=== PATIENT | male | born 1950 | race Caucasian/White ===

== ENCOUNTER 2018-06-04 12:42 | Emergency (ER) | payer MEDICARE, OTHER ==
[2018-06-04] MEDS ORDERED: predniSONE 20 MG TABLET PO STA (13:52)
[2018-06-04] MEDS ORDERED: KETOROLAC 60 MG/2 ML VIAL IM STA (13:52)
[2018-06-04] MEDS ORDERED: COLCHICINE 0.6 MG TABLET PO STA (13:52)
--- NOTE | 2018-06-04 13:53 | ED Physician Documentation ---
History of Present Illness - Stated complaint Stated Complaint: LEFT FOOT PX - Chief complaint Chief Complaint: Ext Problem - History obtained from History obtained from: Patient, Family - History of Present Illness Timing: Yesterday Pain level max: 8 Pain level now: 8 Improved by: rest Worsened by: walking - Additonal information Additional information: Patient is a 67-year-old male who has a long-standing history of recurrent gout. States this happens 1-2 times per year. Always in the left ankle. Review of Systems Constitutional: denies: Fever, Chills GI: denies: Abdominal Pain, Nausea, Vomiting Skin: denies: Rash Musculoskeletal: denies: Neck pain, Back pain Neurologic: denies: Focal weakness, Numbness, Headache PD PAST MEDICAL HISTORY - Past Medical History Past Medical History: Yes Cardiovascular: Hypertension, High cholesterol Respiratory: Sleep apnea Endocrine/Autoimmune: Type 2 diabetes GI: Colon polyps : Benign prostate hypertrophy HEENT: None Psych: None Musculoskeletal: Rheumatoid arthritis Derm: Herpes zoster - Past Surgical History Past Surgical History: Yes General: Appendectomy, Colonoscopy - Present Medications Home Medications: Ambulatory Orders Medication Instructions Recorded Confirmed Amitriptyline [Elavil] 25 mg PO HS 02/11/15 09/16/16 Ascorbic Acid [Vitamin C] 1,000 mg PO DAILY 02/11/15 09/16/16 Atorvastatin [Lipitor] 40 mg PO DAILY PM 02/11/15 09/16/16 Glipizide [Glucotrol] 10 mg PO BID 02/11/15 09/16/16 Lisinopril [Zestril] 5 mg PO DAILY 02/11/15 09/16/16 Metoprolol Tartrate 100 mg PO DAILY 02/11/15 09/16/16 Tamsulosin [Flomax] 0.4 mg PO DAILY 02/11/15 09/16/16 Aspirin [Aspir-Low] 81 mg PO DAILY 09/16/16 09/16/16 Cholecalciferol (Vitamin D3) 200 unit PO DAILY 09/16/16 09/16/16 [Vitamin D3] Cyanocobalamin (Vitamin B-12) 5,000 mcg PO DAILY 09/16/16 09/16/16 [Vitamin B12] Doxylamine Succinate [Sleep Aid] 1 tab PO QPM PRN 09/16/16 09/16/16 Finasteride 5 mg PO DAILY 09/16/16 09/16/16 Multivitamin [Multiple Vitamins] 1 each PO DAILY 09/16/16 09/16/16 [place]-3 Fatty Acids [Fish Oil] 2,400 mg PO DAILY 09/16/16 09/16/16 Pregabalin [Lyrica] 200 mg PO TID 09/16/16 09/16/16 Meloxicam [Mobic] 15 mg PO DAILY PRN #20 tablet 06/04/18 predniSONE [Prednisone] 40 mg PO DAILY #10 tablet 06/04/18 - Allergies Allergies/Adverse Reactions: Allergies Allergy/AdvReac Type Severity Reaction Status Date / Time oxycodone AdvReac Nausea Verified 02/11/15 07:21 - Social History Does the pt smoke?: No Smoking Status: Never smoker Does the pt drink ETOH?: Yes Does the pt have substance abuse?: No - Immunizations Immunizations are current?: Yes PD ED PE NORMAL - Vitals Vital signs reviewed: Yes - General General: Alert and oriented X 3, No acute distress - Derm Derm: Warm and dry - Extremities Extremities: Other (mild swelling L lateral malleolus. NVI. mild redness. mild pain with ROM of the ankle. ) - Neuro Neuro: Alert and oriented X 3 - Psych Psych: Normal mood, Normal affect Results - Vitals Vitals: Vital Signs - 24 hr 06/04/18 06/04/18 12:49 14:29 Temperature 36.3 C L 36.3 C L Heart Rate 65 58 L Respiratory 16 18 Rate Blood Pressure 164/66 H 135/93 H O2 Saturation 97 97 Oxygen O2 Source Room air PD MEDICAL DECISION MAKING - ED course Complexity details: considered differential, d/w patient, d/w family ED course: Patient is a 67-year-old male who presents to the emergency department with his usual gout flare. No evidence of septic joint. Given colchicine, prednisone and nonsteroidal anti-inflammatories here. Will continue prednisone and NSAIDs at home. Patient counseled regarding signs and symptoms for which I believe and urgent re-evaluation would be necessary. Patient with good understanding of and agreement to plan and is comfortable going home at this time This document was made in part using voice recognition software. While efforts are made to proofread this document, sound alike and grammatical errors may occur. - Sepsis Event Vital Signs: Vital Signs - 24 hr 06/04/18 06/04/18 12:49 14:29 Temperature 36.3 C L 36.3 C L Heart Rate 65 58 L Respiratory 16 18 Rate Blood Pressure 164/66 H 135/93 H O2 Saturation 97 97 Oxygen O2 Source Room air Departure - Departure Disposition: 01 Home, Self Care Clinical Impression: Gout Qualifiers: Gout site: ankle Gout etiology: unspecified cause Chronicity: acute Laterality : left Qualified Code(s): M10.9 - Gout, unspecified Condition: Good Instructions: ED Arthritis Gout, ED Diet Gout Follow-Up: Provider,Other [Primary Care Provider] - Within 1 week Prescriptions: Meloxicam [Mobic] 15 mg PO DAILY PRN #20 tablet PRN Reason: pain predniSONE [Prednisone] 40 mg PO DAILY #10 tablet Comments: Return if you worsen. This should improve over the next few days. Discharge Date/Time: 06/04/18 14:29
[2018-06-04 14:31] VITALS: BP 135/93
== END 2018-06-04 14:29 | disposition home or self-care (01) ==
LOC: ED 12:42
DX: M10.9 Gout, unspecified (principal); M06.9 Rheumatoid arthritis, unspecified; I10 Essential (primary) hypertension; E78.00 Pure hypercholesterolemia, unspecified; E11.9 Type 2 diabetes mellitus without complications; N40.0 Benign prostatic hyperplasia without lower urinary tract symptoms; Z86.010 Personal history of colon polyps; Z79.82 Long term (current) use of aspirin; Z79.84 Long term (current) use of oral hypoglycemic drugs
CPT/HCPCS: 96372; 99283; A9270; J7512

== ENCOUNTER 2020-03-28 21:06 | Outpatient (CLI) | payer MEDICARE, OTHER | END 2020-03-28 23:59 | disposition critical access hospital (66) | LOC: EMS 21:06 | PROVIDERS: ATTEND Surgery | DX: R41.82 Altered mental status, unspecified (principal); R73.09 Other abnormal glucose; R11.2 Nausea with vomiting, unspecified | CPT/HCPCS: A0425; A0427 ==

== ENCOUNTER 2020-03-28 21:20 | Emergency (ER) | payer MEDICARE, OTHER ==
--- NOTE | 2020-03-28 21:36 | ED Physician Documentation ---
History of Present Illness - Stated complaint Stated Complaint: AMS - Chief complaint Chief Complaint: Neuro - History obtained from History obtained from: Patient (the patient is a 69 y/o M brought in my ems after the noticed her drinking a beer and then he started acting confused. the remainder of the history is unknown.) Review of Systems Unable to obtain: Intoxicated PD PAST MEDICAL HISTORY - Past Medical History Past Medical History: Yes Cardiovascular: Hypertension, High cholesterol Respiratory: Sleep apnea Endocrine/Autoimmune: Type 2 diabetes GI: Colon polyps : Benign prostate hypertrophy HEENT: None Psych: None Musculoskeletal: Rheumatoid arthritis Derm: Herpes zoster - Past Surgical History Past Surgical History: Yes General: Appendectomy, Colonoscopy - Present Medications Home Medications: Ambulatory Orders Medication Instructions Recorded Confirmed Amitriptyline [Elavil] 25 mg PO HS 02/11/15 03/29/20 Ascorbic Acid [Vitamin C] 1,000 mg PO DAILY 02/11/15 03/29/20 Atorvastatin [Lipitor] 40 mg PO DAILY PM 02/11/15 03/29/20 Glipizide [Glucotrol] 10 mg PO BID 02/11/15 03/29/20 Metoprolol Tartrate 100 mg PO DAILY 02/11/15 03/29/20 Tamsulosin [Flomax] 0.4 mg PO DAILY 02/11/15 03/29/20 lisinopriL [Zestril] 5 mg PO DAILY 02/11/15 03/29/20 Aspirin [Aspir-Low] 81 mg PO DAILY 09/16/16 03/29/20 Cholecalciferol (Vitamin D3) 200 unit PO DAILY 09/16/16 03/29/20 [Vitamin D3] Cyanocobalamin (Vitamin B-12) 5,000 mcg PO DAILY 09/16/16 03/29/20 [Vitamin B12] Doxylamine Succinate [Sleep Aid] 1 tab PO QPM PRN 09/16/16 03/29/20 Finasteride 5 mg PO DAILY 09/16/16 03/29/20 Multivitamin [Multiple Vitamins] 1 each PO DAILY 09/16/16 03/29/20 [place]-3 Fatty Acids [Fish Oil] 2,400 mg PO DAILY 09/16/16 03/29/20 Pregabalin [Lyrica] 200 mg PO TID 09/16/16 03/29/20 Meloxicam [Mobic] 15 mg PO DAILY PRN #20 tablet 06/04/18 03/29/20 predniSONE [Prednisone] 40 mg PO DAILY #10 tablet 06/04/18 03/29/20 - Allergies Allergies/Adverse Reactions: Allergies Allergy/AdvReac Type Severity Reaction Status Date / Time oxycodone AdvReac Nausea Verified 03/28/20 21:28 - Social History Does the pt smoke?: No Smoking Status: Never smoker Does the pt drink ETOH?: Yes Does the pt have substance abuse?: No - Immunizations Immunizations are current?: Yes - POLST Patient has POLST: No PD ED PE NORMAL - Vitals Vital signs reviewed: Yes - General General: Other (patient smells of alcohol and is slurring his speech.) - HEENT HEENT: Atraumatic, PERRL - Neck Neck: Supple, no meningeal sign - Cardiac Cardiac: RRR, No murmur, Strong equal pulses - Respiratory Respiratory: No respiratory distress, Clear bilaterally - Abdomen Abdomen: Normal bowel sounds, Soft, Non tender, Non distended - Derm Derm: Normal color, Warm and dry, No rash - Extremities Extremities: No deformity, No tenderness to palpate, Normal ROM s pain, No edema, No calf tenderness / cord - Neuro Neuro: Other (smells of alcohol. no facial droop. no unilateral weakness.) - Psych Psych: Normal mood, Normal affect Results - Vitals Vitals: Vital Signs - 24 hr 03/28/20 03/28/20 03/28/20 21:18 21:43 21:58 Temperature Heart Rate 72 67 58 L Respiratory 22 22 20 Rate Blood Pressure 145/73 H 131/68 H 131/68 H O2 Saturation 86 L 99 99 03/28/20 03/28/20 03/28/20 22:05 22:11 22:37 Temperature Heart Rate 78 67 Respiratory 17 14 Rate Blood Pressure 126/64 134/62 H O2 Saturation 97 95 95 03/28/20 03/28/20 03/28/20 22:48 22:58 23:14 Temperature Heart Rate 55 L 57 L 59 L Respiratory 12 12 12 Rate Blood Pressure 134/62 H 134/62 H 108/54 L O2 Saturation 88 L 100 100 03/28/20 03/29/20 03/29/20 23:30 00:00 00:30 Temperature 36.0 C L Heart Rate 70 77 59 L Respiratory 12 20 13 Rate Blood Pressure 105/58 L 119/64 119/64 O2 Saturation 100 100 100 03/29/20 03/29/20 03/29/20 01:07 01:31 02:12 Temperature Heart Rate 65 63 70 Respiratory 12 16 14 Rate Blood Pressure 137/71 H 137/71 H 142/69 H O2 Saturation 98 97 94 03/29/20 03/29/20 03/29/20 03:00 03:34 04:00 Temperature Heart Rate 69 77 56 L Respiratory 22 15 13 Rate Blood Pressure 112/63 120/69 130/67 O2 Saturation 99 98 94 03/29/20 03/29/20 03/29/20 04:37 05:10 05:56 Temperature 36.8 C Heart Rate 54 L 54 L 53 L Respiratory 12 11 L 16 Rate Blood Pressure 106/58 L 99/56 L 140/70 H O2 Saturation 99 99 97 Oxygen O2 Source Room air Oxygen Flow Rate 2 - Labs Labs: Laboratory Tests 03/28/20 03/28/20 03/28/20 21:46 21:46 21:46 WBC 8.8 RBC 3.26 L Hgb 10.9 L Hct 33.4 L MCV 102.5 H MCH 33.4 H MCHC 32.6 RDW 14.3 Plt Count 220 MPV 8.6 Neut # (Auto) 6.2 Lymph # (Auto) 1.7 [place] # (Auto) 0.7 Eos # (Auto) 0.1 Baso # (Auto) 0.0 Absolute Nucleated RBC 0.00 Nucleated RBC % 0.0 PT 11.5 INR 1.0 APTT 27.0 Sodium Potassium Chloride Carbon Dioxide Anion Gap BUN Creatinine Estimated GFR (MDRD) Glucose Lactic Acid Calcium Total Bilirubin AST ALT Alkaline Phosphatase Total Creatine Kinase 337 H Troponin I High Sens B-Natriuretic Peptide Total Protein Albumin Globulin Albumin/Globulin Ratio Lipase TSH Urine Color Urine Clarity Urine pH Ur Specific [place] Urine Protein Urine Glucose (UA) Urine Ketones Urine Occult Blood Urine Nitrite Urine Bilirubin Urine Urobilinogen Ur Leukocyte Esterase Ur Microscopic Review Urine Culture Comments Salicylates < 6.0 Urine Opiates Screen Ur Oxycodone Screen Urine Methadone Screen Ur Propoxyphene Screen Acetaminophen < 10 L Ur Barbiturates Screen Ur Tricyclics Screen Ur Phencyclidine Scrn Ur Amphetamine Screen U Methamphetamines Scrn U Benzodiazepines Scrn Urine Cocaine Screen U Cannabinoids Screen Ethyl Alcohol 282.2 03/28/20 03/28/20 03/28/20 21:46 21:46 21:46 WBC RBC Hgb Hct MCV MCH MCHC RDW Plt Count MPV Neut # (Auto) Lymph # (Auto) [place] # (Auto) Eos # (Auto) Baso # (Auto) Absolute Nucleated RBC Nucleated RBC % PT INR APTT Sodium Potassium Chloride Carbon Dioxide Anion Gap BUN Creatinine Estimated GFR (MDRD) Glucose Lactic Acid 3.1 H* Calcium Total Bilirubin AST ALT Alkaline Phosphatase Total Creatine Kinase Troponin I High Sens B-Natriuretic Peptide 34 Total Protein Albumin Globulin Albumin/Globulin Ratio Lipase TSH 5.15 Urine Color Urine Clarity Urine pH Ur Specific [place] Urine Protein Urine Glucose (UA) Urine Ketones Urine Occult Blood Urine Nitrite Urine Bilirubin Urine Urobilinogen Ur Leukocyte Esterase Ur Microscopic Review Urine Culture Comments Salicylates Urine Opiates Screen Ur Oxycodone Screen Urine Methadone Screen Ur Propoxyphene Screen Acetaminophen Ur Barbiturates Screen Ur Tricyclics Screen Ur Phencyclidine Scrn Ur Amphetamine Screen U Methamphetamines Scrn U Benzodiazepines Scrn Urine Cocaine Screen U Cannabinoids Screen Ethyl Alcohol 03/28/20 03/28/20 03/28/20 21:46 21:46 21:54 WBC RBC Hgb Hct MCV MCH MCHC RDW Plt Count MPV Neut # (Auto) Lymph # (Auto) [place] # (Auto) Eos # (Auto) Baso # (Auto) Absolute Nucleated RBC Nucleated RBC % PT INR APTT Sodium 133 L Potassium 3.8 Chloride 95 L Carbon Dioxide 26 Anion Gap 12.0 BUN 22 H Creatinine 1.0 Estimated GFR (MDRD) 74 L Glucose 133 H Lactic Acid Calcium 8.9 Total Bilirubin 0.7 AST 24 ALT 11 Alkaline Phosphatase 36 L Total Creatine Kinase Troponin I High Sens 3.5 B-Natriuretic Peptide Total Protein 6.5 L Albumin 4.0 Globulin 2.5 Albumin/Globulin Ratio 1.6 Lipase 56 H TSH Urine Color YELLOW Urine Clarity CLEAR Urine pH 7.0 Ur Specific [place] <=1.005 Urine Protein NEGATIVE Urine Glucose (UA) NEGATIVE Urine Ketones NEGATIVE Urine Occult Blood NEGATIVE Urine Nitrite NEGATIVE Urine Bilirubin NEGATIVE Urine Urobilinogen 0.2 (NORMAL) Ur Leukocyte Esterase NEGATIVE Ur Microscopic Review NOT INDICATED Urine Culture Comments NOT INDICATED Salicylates Urine Opiates Screen NEGATIVE Ur Oxycodone Screen NEGATIVE Urine Methadone Screen NEGATIVE Ur Propoxyphene Screen NEGATIVE Acetaminophen Ur Barbiturates Screen NEGATIVE Ur Tricyclics Screen NEGATIVE Ur Phencyclidine Scrn NEGATIVE Ur Amphetamine Screen NEGATIVE U Methamphetamines Scrn NEGATIVE U Benzodiazepines Scrn NEGATIVE Urine Cocaine Screen NEGATIVE U Cannabinoids Screen NEGATIVE Ethyl Alcohol PD MEDICAL DECISION MAKING - ED course Complexity details: reviewed results, re-evaluated patient (06:00 Patient is awake, alert, oriented he has a steady gait and steady speech tolerated p.o. challenge his is here to pick him up. Work-up is consistent with alcohol intoxication patient educated in counseling on the dangers and risks of alcohol use and alcohol abuse.), considered differential (alcohol intoxication, no anion gap, family reports patient hides his drinking, no indications of any toxic alcohol ingestions. ), d/w patient, d/w family Departure - Departure Disposition: 01 Home, Self Care Clinical Impression: Alcohol intoxication Qualifiers: Complication of substance-induced condition: with unspecified complication Qualified Code(s): F10.929 - Alcohol use, unspecified with intoxication, unspecified Condition: Stable Instructions: ED Alcohol Intoxication Follow-Up: PATTI VO MD [Primary Care Provider] - 03/29/20 Comments: Follow-up with your primary care provider today for recheck. decrease alcohol use.
[2020-03-28] MEDS ORDERED: SODIUM CHLORIDE 0.9% 1,000 ML IV STA ×2 (21:39→22:13)
[2020-03-28] MEDS ORDERED: LORazepam 2 MG/ML VIAL IVP STA ×2 (21:39→22:25)
[2020-03-28 21:53] LABS: BASOPHILS % (AUTO) 0.3 %; EOSINOPHILS # (AUTO) 0.1 10^3/uL (0.0-0.7); EOSINOPHILS % (AUTO) 1.5 %; HGB - HEMOGLOBIN 10.9 g/dL (14.0-18.0); LYMPHOCYTES # (AUTO) 1.7 10^3/uL (1.5-3.5); LYMPHOCYTES % (AUTO) 19.4 %; MEAN CORPUSCULAR HEMOGLOBIN 33.4 pg (27.0-31.0); MEAN CORPUSCULAR HGB CONC 32.6 g/dL (32.0-36.0); MEAN CORPUSCULAR VOLUME 102.5 fL (80.0-94.0); MEAN PLATELET VOLUME 8.6 fL (7.4-11.4); MONOCYTES # (AUTO) 0.7 10^3/uL (0.0-1.0); MONOCYTES % (AUTO) 8.1 %; NEUTROPHILS # (AUTO) 6.2 10^3/uL (1.5-6.6); NEUTROPHILS % (AUTO) 70.5 %; PLT - PLATELET COUNT 220 10^3/uL (130-450); RED BLOOD COUNT 3.26 10^6/uL (4.70-6.10); RED CELL DISTRIBUTION WIDTH 14.3 % (12.0-15.0); WHITE BLOOD COUNT 8.8 x10^3/uL (4.8-10.8)
[2020-03-28 21:58] LABS: MUDS CUTOFF CONCENTRATIONS CUTOFF CONC BELOW:
[2020-03-28 21:59] LABS: PT - PROTHROMBIN TIME 11.5 secs (9.9-12.6)
[2020-03-28 21:59] LABS: BILIRUBIN,URINE NEGATIVE (NEGATIVE); GLUCOSE, URINE (UA) NEGATIVE (NEGATIVE); KETONES,URINE (UA) NEGATIVE (NEGATIVE); LEUKOCYTE ESTERASE, URINE NEGATIVE (NEGATIVE); NITRITE,URINE NEGATIVE (NEGATIVE); OCCULT BLOOD,URINE NEGATIVE (NEGATIVE); PROTEIN,URINE NEGATIVE (NEGATIVE); UROBILINOGEN,URINE 0.2 (NORMAL) E.U./dL (NORMAL)
[2020-03-28 22:00] LABS: CLARITY,URINE CLEAR (CLEAR)
[2020-03-28] MEDS ORDERED: ONDANSETRON 4 MG/2 ML VIAL IVP STA (22:07)
[2020-03-28 22:08] LABS: ACETAMINOPHEN < 10 ug/mL (10-30); CK- CREATINE KINASE 337 IU/L (22-269); SALICYLATE < 6.0 mg/dL
[2020-03-28 22:10] LABS: AMPHETAMINE SCREEN,URINE NEGATIVE (NEGATIVE); BENZODIAZEPINES SCREEN, URINE NEGATIVE (NEGATIVE); COCAINE SCREEN URINE NEGATIVE (NEGATIVE); METHADONE SCREEN, URINE NEGATIVE (NEGATIVE); METHAMPHETAMINES SCREEN, URINE NEGATIVE (NEGATIVE); OPIATE SCREEN, URINE NEGATIVE (NEGATIVE); OXYCODONE SCREEN, URINE NEGATIVE (NEGATIVE); PROPOXYPHENE SCREEN, URINE NEGATIVE (NEGATIVE); TRICYCLIC ANTIDEPRESSANT,URINE NEGATIVE (NEGATIVE)
--- NOTE | 2020-03-28 22:37 | XRAY Report ---
Reason: ams Procedure Date: 03/28/2020 Accession Number: [id number] / [id number] Procedure: XR - Chest 1 View X-Ray CPT Code: 14528 Final Report FULL RESULT: EXAM: CHEST RADIOGRAPHY EXAM DATE: 03/28/2020 10:26 PM. CLINICAL HISTORY: Ams. COMPARISON: None. TECHNIQUE: 1 view. FINDINGS: Lungs/Pleura: No focal opacities evident. No pleural effusion. No pneumothorax. Mediastinum: The heart is enlarged. No pleural effusions. Other: None. IMPRESSION: 1. Enlarged heart. 2. No infiltrates. RADIA
--- NOTE | 2020-03-28 23:02 | CT Report ---
Reason: ams Procedure Date: 03/28/2020 Accession Number: [id number] / [id number] Procedure: CT - HEAD WO CPT Code: Final Report FULL RESULT: EXAM: CT HEAD EXAM DATE: 03/28/2020 10:38 PM. CLINICAL HISTORY: Ams. COMPARISON: None. TECHNIQUE: Multiaxial CT images were obtained from the foramen magnum to the vertex. Reformats: Sagittal and coronal. IV contrast: None. In accordance with CT protocol optimization, one or more of the following dose reduction techniques were utilized for this exam: automated exposure control, adjustment of mA and/or KV based on patient size, or use of iterative reconstructive technique. FINDINGS: Parenchyma: No intraparenchymal hemorrhage. No evidence of mass, midline shift, or CT findings of acute infarction. Virgen-white differentiation is distinct. Extraaxial Spaces: Normal for age. No subdural or epidural collections identified. Ventricles: Normal in size and position. Sinuses and Orbits: Imaged paranasal sinuses, orbits, and mastoids show no significant abnormality. Bones: No evidence of fracture or calvarial defect. Other: None. IMPRESSION: Normal head CT. RADIA
[2020-03-29 00:07] LABS: ALBUMIN/GLOBULIN RATIO 1.6 (1.0-2.2); BILIRUBIN,TOTAL 0.7 mg/dL (0.2-1.0); CALCIUM 8.9 mg/dL (8.5-10.3); TOTAL PROTEIN 6.5 g/dL (6.7-8.2)
[2020-03-29 05:58] VITALS: BP 140/70
== END 2020-03-29 06:05 | disposition home or self-care (01) ==
LOC: EDUNIT# → ED 21:20
DX: F10.929 Alcohol use, unspecified with intoxication, unspecified (principal); E11.9 Type 2 diabetes mellitus without complications; Z79.84 Long term (current) use of oral hypoglycemic drugs; I10 Essential (primary) hypertension; Z79.82 Long term (current) use of aspirin
CPT/HCPCS: 36415; 51701; 70450; 71045; 80053; 81003; 82550; 83605; 83690; 83880; 84443; 84484; 85025; 85610; 85730; 87040; 93005; 99281; 99285; J2060; 80306; 80307; 80320; 80329; 81001; 87086

== ENCOUNTER 2020-12-16 18:22 | Emergency (ER) | payer MEDICARE, OTHER ==
[2020-12-16] MEDS ORDERED: BUFFERED LIDOCAINE 10 ML SYRINGE SUBQ STA (20:32)
--- NOTE | 2020-12-16 21:04 | XRAY Report ---
PROCEDURE: Finger(s) LT INDICATIONS: Trauma TECHNIQUE: AP hand, 3 views of the thumb finger(s) acquired. COMPARISON: None FINDINGS: Bones: No fractures or dislocations. There is joint space narrowing with subchondral sclerosis of th e interphalangeal joints. Osteophytes are seen especially in the DIP joints. Soft tissues: No suspicious soft tissue calcifications. IMPRESSION: 1. No acute abnormality of the left thumb. 2. Degenerative changes of the interphalangeal joints with joint space narrowing, subchondral scleros is and osteophytosis consistent with osteoarthritis. Reviewed by: Olman Serna on 12/16/2020 9:02 PM PST Approved by: Olman Serna on 12/16/2020 9:02 PM PST Station ID: [id number]
[2020-12-16] MEDS ORDERED: TETANUS/DIPHTHERIA/PERTUSSIS 0.5 ML SYRINGE IM ONE (21:18)
--- NOTE | 2020-12-16 21:20 | ED Physician Documentation ---
PD HPI UPPER EXT INJURY - Stated complaint Stated Complaint: LT THUMB LAC - Chief complaint Chief Complaint: Laceration - History obtained from History obtained from: Patient - History of Present Illness Location: Left, Finger (thumb) Type of injury: Laceration (axe at home, accidentally dropped.) Where injury occurred: Home Timing - onset: How many hours ago (1) Timing - duration: Hours (1) Timing - details: Abrupt onset Pain level max: 4 Pain level now: 3 Improved by: Rest Worsened by: Moving, Palpating Associated symptoms: No: Weakness, Numbness, Tingling, Swelling Contributing factors: No: Anticoagulated, Prior ortho surgery, Prosthetic joint Recently seen: Not recently seen - Additonal information Additional information: pt is right handed Review of Systems Constitutional: denies: Fever, Chills GI: denies: Vomiting Skin: denies: Rash Musculoskeletal: denies: Neck pain, Back pain Neurologic: denies: Headache, Head injury PD PAST MEDICAL HISTORY - Past Medical History Past Medical History: Yes Cardiovascular: Hypertension, High cholesterol Respiratory: Sleep apnea Endocrine/Autoimmune: Type 2 diabetes GI: Colon polyps : Benign prostate hypertrophy HEENT: None Psych: None Musculoskeletal: Rheumatoid arthritis Derm: Herpes zoster - Past Surgical History Past Surgical History: Yes General: Appendectomy, Colonoscopy - Present Medications Home Medications: Ambulatory Orders Medication Instructions Recorded Confirmed Amitriptyline [Elavil] 25 mg PO HS 02/11/15 03/29/20 Ascorbic Acid [Vitamin C] 1,000 mg PO DAILY 02/11/15 03/29/20 Atorvastatin [Lipitor] 40 mg PO DAILY PM 02/11/15 03/29/20 Glipizide [Glucotrol] 10 mg PO BID 02/11/15 03/29/20 Metoprolol Tartrate 100 mg PO DAILY 02/11/15 03/29/20 Tamsulosin [Flomax] 0.4 mg PO DAILY 02/11/15 03/29/20 lisinopriL [Zestril] 5 mg PO DAILY 02/11/15 03/29/20 Aspirin [Aspir-Low] 81 mg PO DAILY 09/16/16 03/29/20 Cholecalciferol (Vitamin D3) 200 unit PO DAILY 09/16/16 03/29/20 [Vitamin D3] Cyanocobalamin (Vitamin B-12) 5,000 mcg PO DAILY 09/16/16 03/29/20 [Vitamin B12] Doxylamine Succinate [Sleep Aid] 1 tab PO QPM PRN 09/16/16 03/29/20 Finasteride 5 mg PO DAILY 09/16/16 03/29/20 Multivitamin [Multiple Vitamins] 1 each PO DAILY 09/16/16 03/29/20 [place]-3 Fatty Acids [Fish Oil] 2,400 mg PO DAILY 09/16/16 03/29/20 Pregabalin [Lyrica] 200 mg PO TID 09/16/16 03/29/20 Meloxicam [Mobic] 15 mg PO DAILY PRN #20 tablet 06/04/18 03/29/20 predniSONE [Prednisone] 40 mg PO DAILY #10 tablet 06/04/18 03/29/20 - Allergies Allergies/Adverse Reactions: Allergies Allergy/AdvReac Type Severity Reaction Status Date / Time oxycodone AdvReac Nausea Verified 12/16/20 18:35 - Social History Does the pt smoke?: No Smoking Status: Never smoker Does the pt drink ETOH?: Yes Does the pt have substance abuse?: No - Immunizations Immunizations are current?: Yes - POLST Patient has POLST: No PD ED PE NORMAL - Vitals Vital signs reviewed: Yes - General General: Alert and oriented X 3, No acute distress - HEENT HEENT: Moist mucous membranes - Neck Neck: Supple, no meningeal sign - Derm Derm: Warm and dry - Extremities Extremities: Other (L thumb - laceration to the dorsum of the proximal phalanx, tendon exposed, but not lacerated. NVI. Tested vs resistance.) - Neuro Neuro: Alert and oriented X 3 - Psych Psych: Normal mood, Normal affect Results - Vitals Vitals: Vital Signs - 24 hr 12/16/20 12/16/20 18:31 21:38 Temperature 36.0 C L 36.8 C Heart Rate 78 63 Respiratory 14 20 Rate Blood Pressure 154/89 H 147/77 H O2 Saturation 98 99 Oxygen O2 Source Room air - Rads (name of study) L thumb xray Radiology: Prelim report reviewed, EMP read contemporaneously, See rad report (no Acute abnormality) Procedures - Laceration (location) L thumb Length in cm: 3 Wound type: Curved, Flap, Into subcut fat, Clean Neurovascular status: Sensory intact, Motor intact, Vascular intact Tendon involvement: Tendon intact Anesthesia: Lidocaine 1% Wound preparation: Irrigated copiously NS, Wound explored Skin layer closure: Nylon, Interrupted, Size #-0 - enter number (4) Other: Patient tolerated well, No complications, Neurovascular intact, Tetanus booster given (tdap) PD MEDICAL DECISION MAKING - ED course Complexity details: reviewed results, re-evaluated patient, considered differential, d/w patient ED course: 70-year-old male presents to the emergency department with a left thumb laceration. This was repaired. Tolerated well. No acute findings on x-ray. Tdap given. Wound is clean. Neurovascularly intact. No tendon injury. Warnings of infection and instructions on wound care given at bedside. Also counseled on how to minimize scarring. Patient counseled regarding signs and symptoms for which I believe and urgent re-evaluation would be necessary. Patient with good understanding of and agreement to plan and is comfortable going home at this time This document was made in part using voice recognition software. While efforts a re made to proofread this document, sound alike and grammatical errors may occur. Departure - Departure Disposition: 01 Home, Self Care Clinical Impression: Thumb laceration Qualifiers: Encounter type: initial encounter Damage to nail status: without damage Foreign body presence: without foreign body Laterality: left Qualified Code(s): S61.012A - Laceration without foreign body of left thumb without damage to nail, initial encounter Condition: Good Instructions: ED Laceration Hand Follow-Up: Marga Mcguire MD [Primary Care Provider] - Within 1 week Comments: Follow-up with your doctor in about 10 to 14 days for suture removal. Return if you notice redness, swelling or drainage from the wound. You are given a tetanus shot today. Discharge Date/Time: 12/16/20 21:38
[2020-12-16 21:38] VITALS: BP 147/77
== END 2020-12-16 21:38 | disposition home or self-care (01) ==
LOC: ED 18:22
DX: S61.012A Laceration without foreign body of left thumb without damage to nail, initial encounter (principal); W27.0XXA Contact with workbench tool, initial encounter; Y92.008 Other place in unspecified non-institutional (private) residence as the place of occurrence of the external cause; Z23 Encounter for immunization; I10 Essential (primary) hypertension; E11.9 Type 2 diabetes mellitus without complications; Z79.84 Long term (current) use of oral hypoglycemic drugs; Z79.82 Long term (current) use of aspirin
CPT/HCPCS: 12002; 90471; 99282; 99283

== ENCOUNTER 2022-03-16 12:58 | Emergency (ER) | payer MEDICARE, OTHER ==
[2022-03-16 13:18] VITALS: BP 146/58
--- OUTSIDE RECORDS SUMMARY | 2022-03-16 13:27 | EXTERNAL MEDICAL SUMMARY RPT | Continuity of Care Document ---
:1950 Author Organization [facility] Address [address] [place] [address] Phone Care Team Providers Name Role Phone Clerc Unavailable Unavailable Allergies No information. Encounters No information. Medications date description facility 20220219 Acetaminophen 325 MG / Hydrocodone Mona rtrate 5 MG Oral [facility] Tablet 20220219 Acetaminophen 325 MG Oral Tablet [facility] 20220219 Aspirin 81 MG Enteric Coated [facility] 20220219 Ibuprofen 400 MG Oral Tablet [facility] 20220217 Diphenhydramine Citrate 38 MG / Ibuprof en 200 MG Oral [facility] Tablet 20220217 24 HR metoprolol succinate 100 MG Exten ded Release [facility] Tablet Problems date description facility 20220218 Unilateral primary osteoarthritis, righ t knee [facility] 20220216 Contact with and (suspected) exposure t o [address] Procedures date description facility 20220218 [facility] 20220216 [facility] Results No information. Vital Signs date measurement value source 20220218 weight_standard 227.08 lb 20220218 weight_metric 103 kg 20220218 height_standard 70 in 20220218 height_metric 177.8 cm 20220218 BMI 31.8 kg/m2 20220219 temperature_standard 97.9 F 20220219 temperature_metric 36.61 C 20220219 respiration_rate 18 /min 20220219 heart_rate 65 /min 20220219 BP_systolic 126 mm[Hg] 20220219 BP_diastolic 62 mm[Hg]
--- NOTE | 2022-03-16 13:42 | ED Physician Documentation ---
History of Present Illness - Stated complaint Stated Complaint: LT FT PX - Chief complaint Chief Complaint: Wound - History obtained from History obtained from: Patient, Family - History of Present Illness Timing: How many days ago (3) Pain level max: 0 Pain level now: 0 - Additonal information Additional information: Patient is a 71-year-old male who presents to the emergency department left foot Swelling and redness. He states that he was recently on a cruise. 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 He states that the ball of the foot started swelling and turning red a few days ago. The physician on the ship recommended incision and drainage, but they did not want to do this until he got home. He has an appointment with his rn urgent care in 2 days. No fevers. No chills. Nothing makes it better or worse. Review of Systems Constitutional: denies: Fever, Chills GI: denies: Vomiting, Diarrhea PD PAST MEDICAL HISTORY - Past Medical History Cardiovascular: Hypertension, High cholesterol Respiratory: Sleep apnea Endocrine/Autoimmune: Type 2 diabetes GI: Colon polyps : Benign prostate hypertrophy HEENT: None Psych: None Musculoskeletal: Rheumatoid arthritis Derm: Herpes zoster - Past Surgical History Past Surgical History: Yes General: Appendectomy, Colonoscopy - Present Medications Home Medications: Ambulatory Orders Medication Instructions Recorded Confirmed Amitriptyline [Elavil] 25 mg PO HS 02/11/15 03/29/20 Ascorbic Acid [Vitamin C] 1,000 mg PO DAILY 02/11/15 03/29/20 Atorvastatin [Lipitor] 40 mg PO DAILY PM 02/11/15 03/29/20 Glipizide [Glucotrol] 10 mg PO BID 02/11/15 03/29/20 Metoprolol Tartrate 100 mg PO DAILY 02/11/15 03/29/20 Tamsulosin [Flomax] 0.4 mg PO DAILY 02/11/15 03/29/20 lisinopriL [Zestril] 5 mg PO DAILY 02/11/15 03/29/20 Aspirin [Aspir-Low] 81 mg PO DAILY 09/16/16 03/29/20 Cholecalciferol (Vitamin D3) 200 unit PO DAILY 09/16/16 03/29/20 [Vitamin D3] Cyanocobalamin (Vitamin B-12) 5,000 mcg PO DAILY 09/16/16 03/29/20 [Vitamin B12] Doxylamine Succinate [Sleep Aid] 1 tab PO QPM PRN 09/16/16 03/29/20 Finasteride 5 mg PO DAILY 09/16/16 03/29/20 Multivitamin [Multiple Vitamins] 1 each PO DAILY 09/16/16 03/29/20 [place]-3 Fatty Acids [Fish Oil] 2,400 mg PO DAILY 09/16/16 03/29/20 Pregabalin [Lyrica] 200 mg PO TID 09/16/16 03/29/20 Meloxicam [Mobic] 15 mg PO DAILY PRN #20 tablet 06/04/18 03/29/20 predniSONE [Prednisone] 40 mg PO DAILY #10 tablet 06/04/18 03/29/20 clindamycin HCL [Cleocin HCl] 300 mg PO Q6H #40 cap 03/16/22 - Allergies Allergies/Adverse Reactions: Allergies Allergy/AdvReac Type Severity Reaction Status Date / Time No Known Drug Allergies Allergy Verified 03/16/22 13:18 - Social History Does the pt smoke?: No Smoking Status: Never smoker Does the pt drink ETOH?: Yes Does the pt have substance abuse?: No - Immunizations Immunizations are current?: Yes - POLST Patient has POLST: No PD ED PE NORMAL - Vitals Vital signs reviewed: Yes - General General: Alert and oriented X 3, No acute distress - HEENT HEENT: Moist mucous membranes - Neck Neck: Supple, no meningeal sign - Extremities Extremities: Other (3 x 3 cm abscess to the ball of the left foot. MTP joint. Superficial. Mild surrounding cellulitis) - Neuro Neuro: Alert and oriented X 3 Results - Vitals Vitals: Vital Signs - 24 hr 03/16/22 13:15 Temperature 36.0 C L Heart Rate 65 Respiratory 16 Rate Blood Pressure 146/58 H O2 Saturation 97 Oxygen O2 Source Room air Procedures - Abscess I&D (location) Left foot, first MTP joint, ball of foot Preparation: Alcohol Incision: Incised with scalpel, Purulent drainage, Irrigated, Culture obtained Other: Pt tolerated well, Dressing applied, Antibiotic prescribed PD MEDICAL DECISION MAKING - ED course Complexity details: considered differential, d/w patient, d/w family ED course: The abscess was incised and drained. Tolerated well. Wound culture obtained. Will place on clindamycin for home. Has an appointment with podiatry in 2 days. Patient counseled regarding signs and symptoms for which I believe and urgent re-evaluation would be necessary. Patient with good understanding of and agreement to plan and is comfortable going home at this time This document was made in part using voice recognition software. While efforts are made to proofread this document, sound alike and grammatical errors may occur. Departure - Departure Disposition: 01 Home, Self Care Clinical Impression: Abscess Condition: Good Instructions: ED Abscess IandD Follow-Up: Marga Mcguire MD [Primary Care Provider] - Tala Davila DPM [Provider Admit Priv/Credential] - 03/18/22 Prescriptions: clindamycin HCL [Cleocin HCl] 300 mg PO Q6H #40 cap Comments: Your antibiotics were sent to the [facility]. Please take all antibiotics until gone. Follow-up with your rn urgent care on Wednesday as scheduled. A wound culture was also sent, if we need to change your antibiotics, we will call you. You can soak the area 2-3 times daily in warm water to help it continue to drain.
== END 2022-03-16 14:03 | disposition home or self-care (01) ==
LOC: ED 12:58
DX: E11.42 Type 2 diabetes mellitus with diabetic polyneuropathy (principal); E11.621 Type 2 diabetes mellitus with foot ulcer; L97.429 Non-pressure chronic ulcer of left heel and midfoot with unspecified severity; Z79.84 Long term (current) use of oral hypoglycemic drugs
CPT/HCPCS: 10060; 87070; 87181; 87205; 99283

== ENCOUNTER 2022-03-30 15:22 | Outpatient (CLI) | payer MEDICARE, OTHER | END 2022-03-30 15:23 | disposition home or self-care (01) | LOC: LAB.R 15:22 | PROVIDERS: ATTEND Podiatrist | DX: E11.622 Type 2 diabetes mellitus with other skin ulcer (principal) | CPT/HCPCS: 87070; 87077; 87181; 87205 ==

== ENCOUNTER 2023-09-14 11:27 | Outpatient (CLI) | payer MEDICARE, OTHER ==
--- NOTE | 2023-09-14 15:51 | XRAY Report ---
PROCEDURE: Foot 3 View LT INDICATIONS: LT FOOT PAIN TECHNIQUE: 3 views of the foot were acquired. COMPARISON: None. FINDINGS: Bones: No fractures or dislocations. No suspicious bony lesions. Mild first MTP joint, midfoot and tibiotalar joint osteoarthritis. Dorsal calcaneal bone spur. Soft tissues: No suspicious soft tissue calcifications or masses. IMPRESSION: No acute osseous abnormality. If there is continued concern for pathology consider advancing imaging (CT, MR, bone scan) were additional evaluation. Reviewed by: Melissa Voss MD, PhD on 09/14/2023 3:49 PM PST Approved by: Melissa Voss MD, PhD on 09/14/2023 3:49 PM PST Station ID: [id number]
== END 2023-09-14 11:28 | disposition home or self-care (01) ==
LOC: DI 11:27
PROVIDERS: ATTEND Podiatrist
DX: M79.672 Pain in left foot (principal)

== ENCOUNTER 2023-10-28 10:33 | Emergency (ER) | payer MEDICARE, OTHER ==
[2023-10-28] MEDS: predniSONE 20 MG TABLET PO STA (13:35)
[2023-10-28] MEDS: HYDROmorphone 1 MG/ML CARPUJECT IM STA (13:35)
--- NOTE | 2023-10-28 14:38 | ED Physician Documentation ---
PD HPI BACK PAIN - Stated complaint Stated Complaint: BACK/HIP PX - Chief complaint Chief Complaint: Back Pain - History obtained from History obtained from: Patient, Family - Additional information Additional information: Patient is a 73-year-old male presenting for evaluation of left lower back pain radiating to his left leg starting approximately 2 weeks ago after walking more briskly than usual. Patient states he has tried occasional ibuprofen Without any significant improvement. Patient denies bowel or bladder incontinence. Denies fever. No chest pain, shortness of air, abdominal pain.Denies numbness or tingling down the leg. No saddle anesthesia. Does not take a blood thinner. No prior surgeries or procedures to the back. Review of Systems Constitutional: denies: Fever Cardiac: denies: Chest pain / pressure Respiratory: denies: Dyspnea GI: denies: Abdominal Pain : denies: Dysuria, Incontinent Musculoskeletal: reports: Back pain PD PAST MEDICAL HISTORY - Past Medical History Past Medical History: Yes Cardiovascular: Hypertension, High cholesterol Respiratory: Sleep apnea Endocrine/Autoimmune: Type 2 diabetes GI: Colon polyps : Benign prostate hypertrophy HEENT: None Psych: None Musculoskeletal: Rheumatoid arthritis Derm: Herpes zoster - Past Surgical History Past Surgical History: Yes General: Appendectomy, Colonoscopy Ortho: Knee replacement - Present Medications Home Medications: Ambulatory Orders Medication Instructions Recorded Confirmed Amitriptyline [Elavil] 25 mg PO HS 02/11/15 03/29/20 Ascorbic Acid [Vitamin C] 1,000 mg PO DAILY 02/11/15 03/29/20 Atorvastatin [Lipitor] 40 mg PO DAILY PM 02/11/15 03/29/20 Glipizide [Glucotrol] 10 mg PO BID 02/11/15 03/29/20 Metoprolol Tartrate 100 mg PO DAILY 02/11/15 03/29/20 Tamsulosin [Flomax] 0.4 mg PO DAILY 02/11/15 03/29/20 lisinopriL [Zestril] 5 mg PO DAILY 02/11/15 03/29/20 Aspirin [Aspir-Low] 81 mg PO DAILY 09/16/16 03/29/20 Cholecalciferol (Vitamin D3) 200 unit PO DAILY 09/16/16 03/29/20 [Vitamin D3] Cyanocobalamin (Vitamin B-12) 5,000 mcg PO DAILY 09/16/16 03/29/20 [Vitamin B12] Doxylamine Succinate [Sleep Aid] 1 tab PO QPM PRN 09/16/16 03/29/20 Finasteride 5 mg PO DAILY 09/16/16 03/29/20 Multivitamin [Multiple Vitamins] 1 each PO DAILY 09/16/16 03/29/20 [place]-3 Fatty Acids [Fish Oil] 2,400 mg PO DAILY 09/16/16 03/29/20 Pregabalin [Lyrica] 200 mg PO TID 09/16/16 03/29/20 Meloxicam [Mobic] 15 mg PO DAILY PRN #20 tablet 06/04/18 03/29/20 predniSONE [Prednisone] 40 mg PO DAILY #10 tablet 06/04/18 03/29/20 clindamycin HCL [Cleocin HCl] 300 mg PO Q6H #40 cap 03/16/22 Lidocaine Patch 5% [Lidoderm Patch] 1 patch TOP DAILY PRN #10 patch 10/28/23 oxyCODONE [Roxicodone] 5 mg PO Q6H PRN #15 tablet 10/28/23 predniSONE [Deltasone] 20 mg PO [id number] #21 tab 10/28/23 - Allergies Allergies/Adverse Reactions: Allergies Allergy/AdvReac Type Severity Reaction Status Date / Time No Known Drug Allergies Allergy Verified 10/28/23 10:57 - Social History Does the pt smoke?: No Smoking Status: Never smoker Does the pt drink ETOH?: Yes Does the pt have substance abuse?: No - Immunizations Immunizations are current?: Yes - POLST Patient has POLST: No PD ED PE NORMAL - General General: Alert and oriented X 3, No acute distress, Well developed/nourished - HEENT HEENT: Atraumatic, Moist mucous membranes - Neck Neck: Supple, no meningeal sign - Cardiac Cardiac: RRR, Strong equal pulses - Respiratory Respiratory: No respiratory distress, Clear bilaterally - Abdomen Abdomen: Normal bowel sounds, Soft, Non tender, Non distended - Back Back: No spinal TTP, Other (Mild left low lumbar tenderness to palpation) - Derm Derm: Warm and dry - Extremities Extremities: No deformity, No edema, No calf tenderness / cord, Other (Right leg raise on the left) - Neuro Neuro: Alert and oriented X 3, No motor deficit, No sensory deficit, Normal speech Results - Vitals Vitals: Vital Signs - 24 hr 10/28/23 10/28/23 10:52 14:45 Temperature 36.4 C L Heart Rate 66 60 Respiratory 15 16 Rate Blood Pressure 189/84 H 154/84 H O2 Saturation 99 98 Oxygen O2 Source Room air PD Medical Decision Making - ED course Complexity details: re-evaluated patient, d/w patient, d/w family ED course: Patient with left-sided low back pain radiating into the left leg. Distal pulses intact, no focal motor or sensory deficits. No saddle anesthesia. No bowel or bladder incontinence. No red flag signs or symptoms in regards to his back pain. No abdominal symptoms and abdominal exam is benign. No fevers. Patient given a dose of IM Dilaudid and prednisone with improvement in his symptoms. He is ambulatory here. Patient symptoms are likely from a lumbar/sciatic radiculopathy. Patient counseled on treatment plan as well as need for close follow-up with primary care provider. Departure - Departure Disposition: 01 Home, Self Care Clinical Impression: Acute radicular low back pain Condition: Stable Instructions: Lumbar Radiculopathy Prescriptions: predniSONE [Deltasone] 20 mg PO [id number] #21 tab Lidocaine Patch 5% [Lidoderm Patch] 1 patch TOP DAILY PRN #10 patch PRN Reason: pain oxyCODONE [Roxicodone] 5 mg PO Q6H PRN #15 tablet PRN Reason: Pain Comments: Your symptoms are likely from a pinched nerve from your lower back. I am sending prescriptions to the [facility] pharmacy in [place] including a small amount of narcotic pain medication. Please also continue with an anti-inflammatory such as acetaminophen or ibuprofen. I would recommend close follow-up with a primary care provider. You develop any new or worsening symptoms please consider return to the emergency department. I am prescribing a short course of narcotic pain medication for you. These are potentially dangerous and addictive medications that should be used carefully. These medications may constipate you. Take an [id number] stool softener (docusate) twice daily with plenty of water while taking these medications. If you go 24 hours without a bowel movement, take [id number] miralax, per package instructions. Do not drink or drive while taking these medications. If you received narcotic or sedating medications while in the emergency department, do not drive for 24 hours. Store this medication in a safe, secure place and out of reach of children. It is a violation of federal law to give or sell this medication to another person or to use in a manner other than prescribed. The ED will not refill narcotic prescriptions, including prescriptions lost or stolen. To dispose of unwanted medications: 1. [facility] at [address] in [place] has a medication drop box. They accept prescription medications (in pill form) Wednesday through Wednesday 9:00 a.m. to 5:00 p.m. 2. [facility] accepts prescription medications (in pill form only) for disposal year round. Call for more information. 3. Contact the [facility] for the next [facility] sponsored prescription drug collection event. , [phone], or [phone]; Note that many narcotic pain relievers also contain Tylenol/acetaminophen. Please ensure that your total dose of acetaminophen from all sources does not exceed 3 g (3000 mg) per day. Discharge Date/Time: 10/28/23 14:46
[2023-10-28 14:51] VITALS: BP 154/84; O2SAT 98
== END 2023-10-28 14:46 | disposition home or self-care (01) ==
LOC: ED 10:33
DX: M54.16 Radiculopathy, lumbar region (principal); I10 Essential (primary) hypertension; E78.00 Pure hypercholesterolemia, unspecified; E11.9 Type 2 diabetes mellitus without complications; Z79.4 Long term (current) use of insulin; Z79.82 Long term (current) use of aspirin; Z79.899 Other long term (current) drug therapy
CPT/HCPCS: 96372; 99283; J1170; J7512

== ENCOUNTER 2024-02-25 16:49 | Emergency (ER) | payer MEDICARE, OTHER ==
--- NOTE | 2024-02-25 17:21 | ED Physician Documentation ---
PD HPI ABD PAIN - Stated complaint Stated Complaint: ABD PX - Chief complaint Chief Complaint: Abd Pain - History obtained from History obtained from: Patient - History of Present Illness Timing - onset: Last night Timing - details: Gradual onset Pain level max: 8 Pain level now: 8 Quality: Aching, Pain Location: RUQ Radiation: No: Chest, , Lower back, Left flank, Left shoulder, Right flank, Right shoulder, Upper back Improved by: Laying still Worsened by: Moving, Breathing, Palpation Associated symptoms: Nausea, Loss of appetite. No: Fever, Vomiting, Hematemesis, Diarrhea, Constipation, Melena, Hematochezia, Dysuria, Hematuria, Chest pain, Dizzy, Near syncope / syncope Similar symptoms before: Has not had sx before - Additional information Additional information: 73 year old male, with a history of diabetes and chronic back pain. RUQ pain since last night. No fevers. No abdominal surgeries, but did have a lumbar spinal fusion at [facility] 1 month ago. Review of Systems Constitutional: denies: Fever, Chills Respiratory: denies: Dyspnea GI: denies: Vomiting, Diarrhea, Hematemesis, Bloody / black stool : denies: Dysuria Skin: denies: Rash Musculoskeletal: denies: Neck pain, Back pain Neurologic: denies: Headache PD PAST MEDICAL HISTORY - Past Medical History Cardiovascular: Hypertension, High cholesterol Respiratory: Sleep apnea Endocrine/Autoimmune: Type 2 diabetes GI: Colon polyps : Benign prostate hypertrophy HEENT: None Psych: None Musculoskeletal: Rheumatoid arthritis Derm: Herpes zoster - Past Surgical History Past Surgical History: Yes General: Appendectomy, Colonoscopy Ortho: Knee replacement, Spine surgery - Present Medications Home Medications: Ambulatory Orders Medication Instructions Recorded Confirmed Ascorbic Acid [Vitamin C] 1,000 mg PO DAILY 02/11/15 02/25/24 Metoprolol Tartrate 100 mg PO DAILY 02/11/15 02/25/24 Tamsulosin [Flomax] 0.4 mg PO DAILY 02/11/15 02/25/24 lisinopriL [Zestril] 5 mg PO DAILY 02/11/15 02/25/24 Aspirin [Aspir-Low] 81 mg PO DAILY 09/16/16 02/25/24 Cholecalciferol (Vitamin D3) 200 unit PO DAILY 09/16/16 02/25/24 [Vitamin D3] Cyanocobalamin (Vitamin B-12) 5,000 mcg PO DAILY 09/16/16 02/25/24 [Vitamin B12] Doxylamine Succinate [Sleep Aid] 1 tab PO QPM PRN 09/16/16 02/25/24 Finasteride 5 mg PO DAILY 09/16/16 02/25/24 Multivitamin [Multiple Vitamins] 1 each PO DAILY 09/16/16 02/25/24 [place]-3 Fatty Acids [Fish Oil] 2,400 mg PO DAILY 09/16/16 02/25/24 DULoxetine [Cymbalta] 60 mg PO DAILY 02/25/24 02/25/24 Gabapentin [Neurontin] 800 mg PO DAILY 02/25/24 02/25/24 Levothyroxine Sodium [Tirosint] 37.5 mcg PO DAILY 02/25/24 02/25/24 Lisinopril [Zestril] 10 mg PO DAILY 02/25/24 02/25/24 Metoprolol Succinate 100 mg PO DAILY 02/25/24 02/25/24 Ondansetron Odt [Zofran] 4 mg TL Q6H PRN #10 tablet 02/25/24 Trazodone HCl 100 mg PO DAILY 02/25/24 02/25/24 allopurinoL [Allopurinol] 300 mg PO DAILY 02/25/24 02/25/24 metFORMIN [Glucophage] 500 mg PO BID 02/25/24 02/25/24 oxyCODONE [Roxicodone] 5 - 10 mg PO Q6H PRN #20 tablet 02/25/24 MDD 6 - Allergies Allergies/Adverse Reactions: Allergies Allergy/AdvReac Type Severity Reaction Status Date / Time No Known Drug Allergies Allergy Verified 02/25/24 17:21 - Social History Does the pt smoke?: No Smoking Status: Never smoker Does the pt drink ETOH?: Yes Does the pt have substance abuse?: No - Immunizations Immunizations are current?: Yes - POLST Patient has POLST: No PD ED PE NORMAL - Vitals Vital signs reviewed: Yes - General General: Alert and oriented X 3, No acute distress - HEENT HEENT: PERRL, Moist mucous membranes - Neck Neck: Supple, no meningeal sign - Cardiac Cardiac: RRR - Respiratory Respiratory: No respiratory distress, Clear bilaterally - Abdomen Abdomen: Other (Tender palpation right upper quadrant. Positive Gonzales sign.) - Back Back: No CVA TTP, No spinal TTP - Derm Derm: Warm and dry - Extremities Extremities: No edema - Neuro Neuro: Alert and oriented X 3 - Psych Psych: Normal mood, Normal affect Results - Vitals Vitals: Vital Signs - 24 hr 02/25/24 02/25/24 02/25/24 16:55 20:11 22:13 Temperature 36.3 C L 36.3 C L Heart Rate 64 84 84 Respiratory 18 18 18 Rate Blood Pressure 109/56 L 173/63 H 171/76 H O2 Saturation 98 99 100 Oxygen O2 Source Room air - Labs Labs: Laboratory Tests 02/25/24 02/25/24 02/25/24 17:15 17:15 17:15 WBC 11.3 H RBC 2.70 L Hgb 8.2 L Hct 26.5 L MCV 98.1 H MCH 30.4 MCHC 30.9 L RDW 14.8 Plt Count 364 MPV 8.5 Neut # (Auto) 8.2 H Lymph # (Auto) 1.3 L [place] # (Auto) 0.9 Eos # (Auto) 0.8 H Baso # (Auto) 0.1 Absolute Nucleated RBC 0.00 Nucleated RBC % 0.0 Sodium 137 Potassium 4.3 Chloride 103 Carbon Dioxide 25 Anion Gap 9.0 BUN 27 H Creatinine 1.1 Estimated GFR (MDRD) 65 L Glucose 138 H Calcium 10.0 Total Bilirubin 0.3 AST 30 ALT 9 L Alkaline Phosphatase 496 H Total Protein 7.1 Albumin 3.9 Globulin 3.2 Albumin/Globulin Ratio 1.2 Lipase < 10 L Urine Color YELLOW Urine Clarity CLEAR Urine pH 6.0 Ur Specific [place] 1.025 Urine Protein NEGATIVE Urine Glucose (UA) NEGATIVE Urine Ketones NEGATIVE Urine Occult Blood NEGATIVE Urine Nitrite NEGATIVE Urine Bilirubin NEGATIVE Urine Urobilinogen 0.2 (NORMAL) Ur Leukocyte Esterase NEGATIVE Ur Microscopic Review NOT INDICATED Urine Culture Comments NOT INDICATED - Rads (name of study) RUQ US Relevant Findings:: Final report received, See rad report CT abd/pelvis Relevant Findings:: Final report received, See rad report PD Medical Decision Making - ED course Complexity details: reviewed results, re-evaluated patient, considered rufus merrill, d/w patient, d/w family ED course: 73-year-old male with right upper quadrant abdominal pain. Initially thought to possibly be related to his gallbladder and does have a gallstone but no evidence of cholecystitis. Ultrasound revealed what appeared to be several masses in the liver. CT chest, abdomen, pelvis were performed. No acute findings in the chest. CT abdomen pelvis concerning for pancreatic cancer with metastases to the liver. Patient also has anemia, last hemoglobin here approximately 4 years ago was 10. Unclear what his normal baseline hemoglobin is. Denies any blood in the stool, black or tarry stools. No chest pain. No shortness of breath. He has had weight loss over the past 1 year. Patient will need close follow-up with his PCP and oncology. 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 Pain well-controlled here with IV Dilaudid. Will place on oxycodone for pain for home. All imaging findings were reviewed with the patient and his . Patient will follow-up with his PCP on Wednesday for referral to oncology. Patient and family counseled regarding signs and symptoms for which I believe and urgent re-evaluation would be necessary. Patient with good understanding of and agreement to plan and is comfortable going home at this time This document was made in part using voice recognition software. While efforts are made to proofread this document, sound alike and grammatical errors may occur. Departure - Departure Disposition: Home, Self Care Clinical Impression: Metastasis to liver, Pancreatic mass Anemia Qualifiers: Anemia type: unspecified type Qualified Code(s): D64.9 - Anemia, unspecified Condition: Stable Instructions: Cancer Pancreatic Follow-Up: ISHAAN ORTEGA DO [Physician No Access] - Lyle Guy MD [Physician No Access] - Reynaldo Pillai MD [Physician No Access] - Prescriptions: oxyCODONE [Roxicodone] 5 - 10 mg PO Q6H PRN #20 tablet MDD 6 PRN Reason: pain Ondansetron Odt [Zofran] 4 mg TL Q6H PRN #10 tablet PRN Reason: Nausea / Vomiting Comments: It is importantly follow-up with your doctor on Wednesday as well as oncology. I have given your information to Henrietta Cisneros. I have given you her card as well. Your CT scan appears to show pancreatic cancer with metastatic disease to the liver. Your prescriptions were sent to [facility] in [place]. You have anemia today as well, but you are above the level for blood transfusion. Your anemia should be rechecked with your doctor next week as well. If needed blood transfusions can be ordered through the [facility] clinic. This can be done by your doctor. I am prescribing a short course of narcotic pain medication for you. These are potentially dangerous and addictive medications that should be used carefully. These medications may constipate you. Take an runc-tnt-gxciydi stool softener (docusate) twice daily with plenty of water while taking these medications. If you go 24 hours without a bowel movement, take dpbt-mju-hedwtmi miralax, per package instructions. Do not drink or drive while taking these medications. If you received narcotic or sedating medications while in the emergency department, do not drive for 24 hours. Store this medication in a safe, secure place and out of reach of children. It is a violation of federal law to give or sell this medication to another person or to use in a manner other than prescribed. The ED will not refill narcotic prescriptions, including prescriptions lost or stolen. To dispose of unwanted medications: 1. [facility] at [address] in [place] has a medication drop box. They accept prescription medications (in pill form) Wednesday through Wednesday 9:00 a.m. to 5:00 p.m. 2. The [facility] [employer] accepts prescription medications (in pill form only) for disposal year round. Call for more information. 3. Contact the [facility] for the next [facility] sponsored prescription drug collection event. , [phone], or [phone]; EXAM: [id number] CT/ABPEW ([id number]) PROCEDURE: Abdomen/Pelvis W INDICATIONS: RUQ pain, poss mass on US CONTRAST: 100 ml omni 300 TECHNIQUE: After the administration of intravenous contrast, a CT scan of the abdomen and pelvis was performed. Images were recorded and evaluated at appropriate window settings. Reformats: coronal and sagittal. For radiation dose reduction, the following was used: automated exposure control, adjustment of mA and/or kV according to patient size. COMPARISON: Ultrasound abdomen 02/25/2024. FINDINGS: Image quality: Diagnostic. Lower chest: Please refer to separately dictated CT of the chest. Liver: Innumerable hypoattenuating lesions throughout the liver, most consistent metastatic disease. Largest lesion in the right hepatic lobe measures approximately 5.6 cm. Gallbladder and biliary tree: Cholelithiasis without wall thickening. Intrahepatic biliary ductal dilatation is present. No extrahepatic biliary ductal dilatation.. Spleen: No splenomegaly. Pancreas: Hyperattenuation lesion within the head/uncinate process of the pancreas measuring approximately 2.7 x 2.2 cm. There is upstream pancreatic ductal dilatation measuring up to 10 mm. Adrenals: No adrenal nodule. Kidneys and ureters: No hydronephrosis. No renal cystic lesion which requires follow up. No solid mass. Stomach, bowel and peritoneum: No bowel distension. Trace perihepatic free fluid, likely related to hepatic metastases. Mesenteric stranding is present. Large burden of stool throughout the colon. Lymph nodes: Prominent and enlarged peripancreatic and retroperitoneal lymph nodes including some with central necrosis, for example a peripancreatic lymph node measuring 2.2 x 1.4 cm (2/63). Vessels: No infrarenal aortic aneurysm. Atherosclerotic vascular calcifications. PELVIS Reproductive organs: Unremarkable. Bladder: Mild diffuse urinary bladder wall thickening. Pelvic lymph nodes: No pelvic adenopathy by size criteria. Bones: No aggressive osseous abnormality. Degenerative changes of the spine. L4- L5 posterior spinal fixation and discectomy. Other: No significant ventral or inguinal hernia. IMPRESSION: 1.Hypoattenuating lesion within the head/uncinate process of the pancreas, concerning for pancreatic adenocarcinoma. 2.Innumerable hypoattenuating lesions throughout the liver, consistent with metastatic disease. 3.Prominent and enlarged peripancreatic and retroperitoneal lymph nodes, likely metastatic. 4.Large burden of stool, correlate for constipation. PROCEDURE: Chest W INDICATIONS: liver masses on US CONTRAST: 100 ml omni 300 TECHNIQUE: After the administration of intravenous contrast, a CT scan of the chest was performed. Images were recorded and evaluated at appropriate window settings. Reformats: axial MIP of the chest, coronal and sagittal. For radiation dose reduction, the following was used: automated exposure control, adjustment of mA and/or kV according to patient size. COMPARISON: None. FINDINGS: Image quality: Diagnostic. Chest wall and lower neck: No thyroid nodule which requires sonographic follow up. No axillary or supraclavicular adenopathy by size. Lungs and pleura: No consolidation. No pleural effusions. No pneumothorax. No suspicious pulmonary nodules which require follow up. Mediastinum: Heart size is normal. Moderate coronary calcific indications. No pericardial effusion. No large vessel abnormality. No mediastinal adenopathy by size criteria. Bones: No aggressive osseous abnormality. Degenerative changes of spine. Upper Abdomen: Please refer to separately dictated CT of the abdomen and pelvis. IMPRESSION: 1.No acute findings within the chest. 2.No suspicious pulmonary nodules. Forms: PCP List Discharge Date/Time: 02/25/24 22:14
[2024-02-25 17:22] LABS: BASOPHILS # (AUTO) 0.1 10^3/uL (0.0-0.1); BASOPHILS % (AUTO) 0.5 %; EOSINOPHILS # (AUTO) 0.8 10^3/uL (0.0-0.7); EOSINOPHILS % (AUTO) 6.8 %; HCT - HEMATOCRIT 26.5 % (42.0-52.0); HGB - HEMOGLOBIN 8.2 g/dL (14.0-18.0); LYMPHOCYTES # (AUTO) 1.3 10^3/uL (1.5-3.5); LYMPHOCYTES % (AUTO) 11.2 %; MEAN CORPUSCULAR HEMOGLOBIN 30.4 pg (27.0-31.0); MEAN CORPUSCULAR HGB CONC 30.9 g/dL (32.0-36.0); MEAN CORPUSCULAR VOLUME 98.1 fL (80.0-94.0); MEAN PLATELET VOLUME 8.5 fL (7.4-11.4); MONOCYTES # (AUTO) 0.9 10^3/uL (0.0-1.0); MONOCYTES % (AUTO) 7.9 %; NEUTROPHILS # (AUTO) 8.2 10^3/uL (1.5-6.6); NEUTROPHILS % (AUTO) 73.1 %; PLT - PLATELET COUNT 364 10^3/uL (130-450); RED CELL DISTRIBUTION WIDTH 14.8 % (12.0-15.0); WHITE BLOOD COUNT 11.3 x10^3/uL (4.8-10.8)
[2024-02-25] MEDS: SODIUM CHLORIDE 0.9% 1,000 ML IV STA (17:25)
[2024-02-25] MEDS: ONDANSETRON 4 MG/2 ML VIAL IVP STA (17:25)
[2024-02-25] MEDS: HYDROmorphone 1 MG/ML CARPUJECT IVP STA ×3 (17:26→20:04)
[2024-02-25 17:36] LABS: ALBUMIN 3.9 g/dL (3.2-5.5); ALBUMIN/GLOBULIN RATIO 1.2 (1.0-2.2); ALKALINE PHOSPHATASE 496 IU/L (42-121); ALT ALANINE AMINOTRANSFERASE 9 IU/L (10-60); AST ASPARTATE AMINOTRANSFERASE 30 IU/L (10-42); BILIRUBIN,TOTAL 0.3 mg/dL (0.2-1.0); BUN - BLOOD UREA NITROGEN 27 mg/dL (6-20); CARBON DIOXIDE - CO2 25 mmol/L (21-32); CHLORIDE 103 mmol/L (101-111); CREATININE 1.1 mg/dL (0.6-1.3); GFR - MDRD 65 (>89); GLUCOSE 138 mg/dL (74-104); LIPASE < 10 U/L (11-82); POTASSIUM 4.3 mmol/L (3.5-4.5); SODIUM 137 mmol/L (135-145); TOTAL PROTEIN 7.1 g/dL (6.4-8.9)
[2024-02-25 17:44] LABS: BILIRUBIN,URINE NEGATIVE (NEGATIVE); CLARITY,URINE CLEAR (CLEAR); GLUCOSE, URINE (UA) NEGATIVE (NEGATIVE); KETONES,URINE (UA) NEGATIVE (NEGATIVE); LEUKOCYTE ESTERASE, URINE NEGATIVE (NEGATIVE); NITRITE,URINE NEGATIVE (NEGATIVE); OCCULT BLOOD,URINE NEGATIVE (NEGATIVE); PROTEIN,URINE NEGATIVE (NEGATIVE); UROBILINOGEN,URINE 0.2 (NORMAL) E.U./dL (NORMAL)
[2024-02-25] MEDS ORDERED: iohexoL-300 100 ML VIAL ONE (19:26)
--- NOTE | 2024-02-25 19:30 | Ultrasound Report ---
PROCEDURE: Abdomen Limited INDICATIONS: RUQ abd pain TECHNIQUE: Real-time focused scanning was performed of the abdomen, with image documentation. COMPARISONS: None. FINDINGS: Liver: Numerous hypoechoic lesions in the liver with internal vascularity. A larger lesion in the le ft liver measuring 3.3 cm. A larger lesion in the right liver measuring 4.8 cm Gallbladder: Gallbladder is nondistended. Gallstone at the neck measuring 1.7 cm. No gallbladder wall thickening. No pericholecystic fluid. Negative sonographic Gonzales sign. Biliary ducts: Intrahepatic bile ducts are non-dilated. Extrahepatic bile duct caliber measures 10 mm. Normal is 6-7 mm or less in diameter, or 10 mm or less post-cholecystectomy. Pancreas: Not well seen due to bowel gas. Right kidney: Normal in size and echotexture. Right kidney measures 9.7 cm long. No hydronephrosis o r nephrolithiasis. No solid masses. No complex renal cystic lesions which require follow-up. IVC: Intrahepatic inferior vena cava is patent. Miscellaneous: No free abdominal fluid. IMPRESSION: 1. Numerous hypoechoic lesions in the liver. Concern for metastatic disease. Recommend CT abdomen pel vis or MRI liver for further evaluation. 2. No acute cholecystitis demonstrated. Gallstone at the gallbladder neck measuring 1.7 cm. 3. CBD is measured at 1 cm and appears mildly dilated. Reviewed by: Arcadio Granger MD on 02/25/2024 7:28 PM PDT Approved by: Arcadio Granger MD on 02/25/2024 7:28 PM PDT Station ID: [id number]
[2024-02-25] MEDS ORDERED: HYDROmorphone 1 MG/ML CARPUJECT ONE (20:03)
[2024-02-25] MEDS: iohexoL-300 100 ML VIAL IVP ONE (20:11)
--- NOTE | 2024-02-25 20:23 | CT Report ---
PROCEDURE: Chest W INDICATIONS: liver masses on US CONTRAST: 100 ml omni 300 TECHNIQUE: After the administration of intravenous contrast, a CT scan of the chest was performed. Images were recorded and evaluated at appropriate window settings. Reformats: axial MIP of the chest, coronal and sagittal. For radiation dose reduction, the following was used: automated exposure control, adjustme nt of mA and/or kV according to patient size. COMPARISON: None. FINDINGS: Image quality: Diagnostic. Chest wall and lower neck: No thyroid nodule which requires sonographic follow up. No axillary or sup raclavicular adenopathy by size. Lungs and pleura: No consolidation. No pleural effusions. No pneumothorax. No suspicious pulmonary n odules which require follow up. Mediastinum: Heart size is normal. Moderate coronary calcific indications. No pericardial effusion. N o large vessel abnormality. No mediastinal adenopathy by size criteria. Bones: No aggressive osseous abnormality. Degenerative changes of spine. Upper Abdomen: Please refer to separately dictated CT of the abdomen and pelvis. IMPRESSION: 1.No acute findings within the chest. 2.No suspicious pulmonary nodules. Reviewed by: Eris Hernández MD on 02/25/2024 8:21 PM PDT Approved by: Eris Hernández MD on 02/25/2024 8:21 PM PDT Station ID: [id number]
--- NOTE | 2024-02-25 20:56 | CT Report ---
PROCEDURE: Abdomen/Pelvis W INDICATIONS: RUQ pain, poss mass on US CONTRAST: 100 ml omni 300 TECHNIQUE: After the administration of intravenous contrast, a CT scan of the abdomen and pelvis was performed. Images were recorded and evaluated at appropriate window settings. Reformats: coronal and sagittal. F or radiation dose reduction, the following was used: automated exposure control, adjustment of mA and /or kV according to patient size. COMPARISON: Ultrasound abdomen 02/25/2024. FINDINGS: Image quality: Diagnostic. Lower chest: Please refer to separately dictated CT of the chest. Liver: Innumerable hypoattenuating lesions throughout the liver, most consistent metastatic disease. Largest lesion in the right hepatic lobe measures approximately 5.6 cm. Gallbladder and biliary tree: Cholelithiasis without wall thickening. Intrahepatic biliary ductal dil atation is present. No extrahepatic biliary ductal dilatation.. Spleen: No splenomegaly. Pancreas: Hyperattenuation lesion within the head/uncinate process of the pancreas measuring approxim ately 2.7 x 2.2 cm. There is upstream pancreatic ductal dilatation measuring up to 10 mm. Adrenals: No adrenal nodule. Kidneys and ureters: No hydronephrosis. No renal cystic lesion which requires follow up. No solid mas s. Stomach, bowel and peritoneum: No bowel distension. Trace perihepatic free fluid, likely related to h epatic metastases. Mesenteric stranding is present. Large burden of stool throughout the colon. Lymph nodes: Prominent and enlarged peripancreatic and retroperitoneal lymph nodes including some wit h central necrosis, for example a peripancreatic lymph node measuring 2.2 x 1.4 cm (2/63). Vessels: No infrarenal aortic aneurysm. Atherosclerotic vascular calcifications. PELVIS Reproductive organs: Unremarkable. Bladder: Mild diffuse urinary bladder wall thickening. Pelvic lymph nodes: No pelvic adenopathy by size criteria. Bones: No aggressive osseous abnormality. Degenerative changes of the spine. L4-L5 posterior spinal f ixation and discectomy. Other: No significant ventral or inguinal hernia. IMPRESSION: 1.Hypoattenuating lesion within the head/uncinate process of the pancreas, concerning for pancreatic adenocarcinoma. 2.Innumerable hypoattenuating lesions throughout the liver, consistent with metastatic disease. 3.Prominent and enlarged peripancreatic and retroperitoneal lymph nodes, likely metastatic. 4.Large burden of stool, correlate for constipation. Reviewed by: Eris Hernández MD on 02/25/2024 8:55 PM PDT Approved by: Eris Hernández MD on 02/25/2024 8:55 PM PDT Station ID: [id number]
[2024-02-25] MEDS: oxyCODONE/ACET 5/325 Prepack 4 PO STA (21:42)
[2024-02-25 22:17] VITALS: BP 171/76; O2SAT 100
== END 2024-02-25 22:14 | disposition home or self-care (01) ==
LOC: ED 16:49
DX: K86.89 Other specified diseases of pancreas (principal); C78.7 Secondary malignant neoplasm of liver and intrahepatic bile duct; C80.1 Malignant (primary) neoplasm, unspecified; D63.0 Anemia in neoplastic disease; I10 Essential (primary) hypertension; E78.00 Pure hypercholesterolemia, unspecified; E11.9 Type 2 diabetes mellitus without complications; Z79.899 Other long term (current) drug therapy; Z79.82 Long term (current) use of aspirin; Z79.84 Long term (current) use of oral hypoglycemic drugs
CPT/HCPCS: 36415; 71260; 74177; 76705; 80053; 81003; 83690; 85025; 96374; 96375; 96376; 99284; 99285; J1170; Q9967; 81001; 87086

== ENCOUNTER 2024-03-10 11:30 | Outpatient (CLI) | payer MEDICARE, OTHER | END 2024-03-10 23:59 | disposition home or self-care (01) | LOC: PC 11:30 | PROVIDERS: ATTEND Nurse Practitioner Adult Health | DX: Z51.5 Encounter for palliative care (principal); G89.3 Neoplasm related pain (acute) (chronic); C25.9 Malignant neoplasm of pancreas, unspecified; C78.7 Secondary malignant neoplasm of liver and intrahepatic bile duct; R53.83 Other fatigue; Z87.891 Personal history of nicotine dependence; D53.9 Nutritional anemia, unspecified; E11.42 Type 2 diabetes mellitus with diabetic polyneuropathy; Z79.84 Long term (current) use of oral hypoglycemic drugs; R63.4 Abnormal weight loss; F41.8 Other specified anxiety disorders; I95.9 Hypotension, unspecified; I10 Essential (primary) hypertension; K59.03 Drug induced constipation; T40.2X5A Adverse effect of other opioids, initial encounter | CPT/HCPCS: 99205; G2212; 99417 ==

== ENCOUNTER 2024-03-14 08:00 | Outpatient (CLI) | payer MEDICARE, OTHER | END 2024-03-14 23:59 | disposition home or self-care (01) | LOC: PC 08:00 | PROVIDERS: ATTEND Nurse Practitioner Adult Health | DX: Z51.5 Encounter for palliative care (principal); G89.3 Neoplasm related pain (acute) (chronic); C25.9 Malignant neoplasm of pancreas, unspecified; C78.7 Secondary malignant neoplasm of liver and intrahepatic bile duct; R63.0 Anorexia; K59.03 Drug induced constipation; D53.9 Nutritional anemia, unspecified; I95.9 Hypotension, unspecified; E11.42 Type 2 diabetes mellitus with diabetic polyneuropathy; Z79.84 Long term (current) use of oral hypoglycemic drugs; Z71.89 Other specified counseling | CPT/HCPCS: 99349 ==

== ENCOUNTER 2024-03-23 08:00 | Outpatient (CLI) | payer MEDICARE, OTHER | END 2024-03-23 23:59 | disposition home or self-care (01) | LOC: PC 08:00 | PROVIDERS: ATTEND Nurse Practitioner Adult Health | DX: Z51.5 Encounter for palliative care (principal); G89.3 Neoplasm related pain (acute) (chronic); K59.03 Drug induced constipation; T40.2X5A Adverse effect of other opioids, initial encounter; Z79.891 Long term (current) use of opiate analgesic; Z79.899 Other long term (current) drug therapy; Z63.8 Other specified problems related to primary support group; Z63.6 Dependent relative needing care at home; R53.83 Other fatigue; M62.81 Muscle weakness (generalized); R63.0 Anorexia; R63.4 Abnormal weight loss; R06.09 Other forms of dyspnea; Z66 Do not resuscitate; E11.40 Type 2 diabetes mellitus with diabetic neuropathy, unspecified; Z71.89 Other specified counseling; C78.7 Secondary malignant neoplasm of liver and intrahepatic bile duct; C25.9 Malignant neoplasm of pancreas, unspecified | CPT/HCPCS: 99350 ==

== ENCOUNTER 2024-04-07 08:00 | Outpatient (CLI) | payer MEDICARE, OTHER | END 2024-04-07 23:59 | disposition home or self-care (01) | LOC: PC 08:00 | PROVIDERS: ATTEND Nurse Practitioner Adult Health | DX: Z51.5 Encounter for palliative care (principal); C25.9 Malignant neoplasm of pancreas, unspecified; C78.7 Secondary malignant neoplasm of liver and intrahepatic bile duct | CPT/HCPCS: 99426; 99427 ==